=== PATIENT | female | born 1980 | race Caucasian/White ===

== ENCOUNTER 2017-11-21 11:06 | Emergency (ER) | payer MEDICAID ==
[~2017-11-21] VITALS: Ht 160 cm; Wt 61.7 kg
[2017-11-21 11:09] VITALS: BP 114/74
--- NOTE | 2017-11-21 11:11 | NUR ---
PT AMBULATES TO BED 9
--- NOTE | 2017-11-21 11:20 | NUR ---
PT C/O POSSIBLE FOREIGN BODY PART OF EARING WENT INSIDE HER LT EAR; DENIES PAIN. PATIENT STATES SHE WAS REMOVING THE EARING FROM DAITH PIERCING AND THE BACK WENT INTO THE EAR CANAL. UPON INSPECTION OF THE EAR, FOREING BODY VIEWED IN EAR CANAL. PATIENT STATES PAIN OF 0/10 AT THIS TIME; VSS; PATIENT POSITIONED FOR COMFORT; HOB ELEVATED; BEDRAILS UP X1; BED DOWN. ER MD MADE AWARE OF PT STATUS.
--- NOTE | 2017-11-21 12:46 | NUR ---
Patient being evaluated by physician at bedside.
[2017-11-21 13:01] VITALS: BP 114/74
== END 2017-11-21 13:00 | disposition home or self-care (01) ==
LOC: MED 11:06
DX: T16.2XXA Foreign body in left ear, initial encounter (principal); X58.XXXA Exposure to other specified factors, initial encounter; Y93.89 Activity, other specified; Y92.89 Other specified places as the place of occurrence of the external cause; Y99.8 Other external cause status
CPT/HCPCS: 69200; 99284

== ENCOUNTER 2018-02-21 16:07 | Emergency (ER) | payer MEDICAID ==
[~2018-02-21] VITALS: Ht 160 cm; Wt 59.9 kg
[2018-02-21 16:20] VITALS: BP 114/73
--- NOTE | 2018-02-21 16:20 | NUR ---
37f bib self with c/o decrease hearing to left ear with the feeling of "having water" in her ear x 1 wk. Patient denies any pain to left ear or injury. Patient denies any cold symptoms or fevers. No discharge noted to left ear. Pt is aox4 to person, place, time, and situation. RR are even and unlabored. NAd. Awaiting er md piña. Will continue to monitor.
--- NOTE | 2018-02-21 17:21 | NUR ---
Patient discharged with v/s stable. Written and verbal after care instructions given and explained. Patient verbalized understanding. Ambulatory with steady gait. All questions addressed prior to discharge. Advised to follow up with PMD.
[2018-02-21 17:23] VITALS: BP 120/72
== END 2018-02-21 17:21 | disposition home or self-care (01) ==
LOC: MED 16:07
DX: H61.22 Impacted cerumen, left ear (principal)
CPT/HCPCS: 99282

== ENCOUNTER 2018-08-24 08:32 | Emergency (ER) | payer MEDICAID ==
[~2018-08-24] VITALS: Ht 160 cm; Wt 63.5 kg
[2018-08-24 08:35] VITALS: BP 109/73
--- NOTE | 2018-08-24 08:48 | NUR ---
Patient ambulated to bed 11. RN evaluating patient at bedside.
--- NOTE | 2018-08-24 08:50 | NUR ---
BIB SELF. AAO X4 C/O DIZZINESS, N/V/D X 2 DAYS. PT STATES SHE FELT SHE HAS A FEVER, BUT DIDN'T CHECK TEMPERATURE AND TOOK TYLENOL YESTERDAY. PT STATES SHE WENT TO [place] LAST TUESDAY AND CAME BACK TUESDAY (08/19/2018). PT STATES VOMITED X2 TODAY, DIARRHEA X1. PT AFEBRILE AT THIS TIME. PERRLA BRISK 3 MM, EQUAL BARTOLO STRENGTH TO UPPER AND LOWER EXTREMITIES. STEADY GAIT. PT DENIES SOB. ER TO EVALUATE PT.
--- NOTE | 2018-08-24 09:41 | NUR ---
DR PRIETO AT BEDSIDE FOR PT EVALUATION
[2018-08-24] MEDS ORDERED: NACL 0.9% 2,000 ML IV SCH (09:49)
[2018-08-24] MEDS ORDERED: ONDANSETRON 4 MG/2 ML VIAL IVP ONE (09:50)
[2018-08-24 10:15] LABS: APPEARANCE,URINE CLOUDY (CLEAR); BILIRUBIN,URINE 1+ (NEGATIVE); BLOOD, URINE NEGATIVE (NEGATIVE); COLOR,URINE YELLOW (YELLOW); LEUKOCYTE ESTERASE ,URINE TRACE (NEGATIVE); NITRITE, URINE NEGATIVE (NEGATIVE); UGLUCOSE NEGATIVE (NEGATIVE)
[2018-08-24 10:25] LABS: BARBITURATE, URINE NEG. ng/ml (NEG <=200); BENZODIAZEPINE, URINE NEG. ng/mL (NEG <=200); CANNABINOID, URINE NEG. ng/mL (NEG <=50); COCAINE, URINE NEG. ng/mL (NEG <=300); OPIATE, URINE NEG. ng/mL (NEG <=2000); PHENCYCLIDINE SCREEN,URINE NEG. ng/mL (NEG <=25)
[2018-08-24 10:43] LABS: BASOPHILS % (AUTO) 0.4 % (0.0-2.0); EOSINOPHILS % (AUTO) 0.3 % (0.0-4.0); HEMATOCRIT 38.5 % (36-48); HEMOGLOBIN 12.5 g/dL (12.0-16.0); LYMPHOCYTES # (AUTO) 0.7 K/uL (2.5-16.5); LYMPHOCYTES % (AUTO) 7.4 % (20.5-51.1); MEAN CORPUSCULAR HEMOGLOBIN 28 pg (27-31); MEAN CORPUSCULAR HGB CONC 32 g/dL (33-37); MEAN CORPUSCULAR VOLUME 84.9 fL (80-94); MONOCYTES # (AUTO) 0.5 K/uL (0.8-1.0); MONOCYTES % (AUTO) 5.5 % (1.7-9.3); NEUTROPHILS # (AUTO) 8.5 K/uL (1.8-7.7); NEUTROPHILS % (AUTO) 86.4 % (42.2-75.2); PLATELET COUNT (AUTO) 303 K/uL (140-450); RED BLOOD CELL COUNT(AUTO) 4.53 MIL/uL (4.20-5.40); RED CELL DISTRIBUTION WIDTH 13.7 % (11.6-13.7); WHITE BLOOD COUNT (AUTO) 9.9 K/uL (4.8-10.8)
[2018-08-24 10:52] LABS: RBC,URINE NONE SEEN /HPF (0-5); URINE AMORPHOUS URATE 4+ /HPF (None Seen); WBC,URINE NONE SEEN /HPF (0-5)
[2018-08-24 10:54] LABS: ACETONE, SERUM NEGATIVE (NEGATIVE)
[2018-08-24 11:00] LABS: ALBUMIN 3.6 g/dL (3.4-5.0); AMYLASE 40 U/L (25-115); ANION GAP 12.7 (8-16); ASPARTATE AMINOTRANSFERASE 15 U/L (15-37); CARBON DIOXIDE 25.4 mmol/L (21-32); CHLORIDE 107 mmol/L (98-107); CREATININE 0.7 mg/dL (0.6-1.3); GFR ARICAN-AMERICAN 122 mL/min (>90); GLUCOSE 95 mg/dL (74-106); LIPASE 92 U/L (73-393); POTASSIUM 4.1 mmol/L (3.5-5.1); SODIUM SERUM 141 mmol/L (136-145); TOTAL BILIRUBIN 0.3 mg/dL (0.0-1.0); UREA NITROGEN, BLOOD 14 mg/dL (7-18)
--- NOTE | 2018-08-24 11:00 | NUR ---
PT ASLEEP. EASILY AROUSABLE BY NAME. NO SIGNS AND SYMPTOMS OF DISTRESS NOTED. EVEN AND UNLABORED BREATHING.
--- NOTE | 2018-08-24 12:00 | NUR ---
PT LAYING DOWN. AAO X4. CLEAR SPEECH. NO SIGNS AND SYMPTOMS OF DISTRESS NOTED.
[2018-08-24 12:33] VITALS: BP 119/84
--- NOTE | 2018-08-24 12:33 | NUR ---
Patient discharged with v/s stable. Written and verbal after care instructions given and explained. Patient alert, oriented and verbalized understanding of instructions. Ambulatory with steady gait. All questions addressed prior to discharge. ID band removed. Patient advised to follow up with PMD. Rx of COMPAZINE, IMODIUM A-D given. Patient educated on indication of medication including possible reaction and side effects. Opportunity to ask questions provided and answered.
== END 2018-08-24 12:33 | disposition home or self-care (01) ==
LOC: MED 08:32
DX: K52.89 Other specified noninfective gastroenteritis and colitis (principal); R50.9 Fever, unspecified
CPT/HCPCS: 36415; 80053; 80305; 81001; 81025; 82009; 82150; 83690; 85025; 96361; 96374; 99283; J2405; J7030

== ENCOUNTER 2019-08-13 19:29 | Emergency (ER) | payer MEDICAID ==
[~2019-08-13] VITALS: Ht 160 cm; Wt 64.9 kg
[2019-08-13 20:04] VITALS: BP 98/64
--- NOTE | 2019-08-13 20:20 | NUR ---
38 Y/O FEMALE PRESENTS TO ER WITH C/O CONSTANT NAUSEA, VOMITING, AND FEVER. X 5 DAYS. PT STATES SHE HASN'T EATEN 08/11/19 DUE TO NAUSEA AND VOMITING. DENIES EATING ANY BAD FOOD, OR BEING AROUND ANY SICK INDIVIDUALS. VSS, R/R EQUAL AND UNLABORED. LMP 08/13/19. PT IS CURRENTLY AFEBRILE, AND NO VOMITING VISUALIZED SINCE BEING CHECKED INTO ER. PT RESTING QUIETLY ON BED, WILL CONTINUE TO MONITOR. NKDA DENIES PMH
--- NOTE | 2019-08-13 20:30 | NUR ---
PT AMBULATED TO [facility] WITH STEADY GAIT.
[2019-08-13 21:08] VITALS: BP 98/64
--- NOTE | 2019-08-13 21:08 | NUR ---
Patient discharged BY DR. KOHLI with v/s stable. Written and verbal after care instructions given and explained BY DR. KOHLI. Patient alert, oriented and verbalized understanding of instructions. Ambulatory with steady gait. All questions addressed prior to discharge BY . ID band removed. Patient advised to follow up with PMD. Rx of MACROBID given. Patient educated on indication of medication including possible reaction and side effects BY DR. KOHLI. Opportunity to ask questions provided and answered.
== END 2019-08-13 21:08 | disposition home or self-care (01) ==
LOC: MED 19:29
DX: N39.0 Urinary tract infection, site not specified (principal)
CPT/HCPCS: 81002; 81025; 99283

== ENCOUNTER 2020-02-03 16:54 | Emergency (ER) | payer MEDICAID ==
[~2020-02-03] VITALS: Ht 160 cm; Wt 69.9 kg
[2020-02-03 17:16] VITALS: BP 131/81
--- NOTE | 2020-02-03 17:20 | NUR ---
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 NO ACTIVE BLEEDING AT THIS TIME. UNKNOWN DOG'S IMMUNIZATIONS RECORD. PT CANNOT RECALL HER LAST TDAP SHOT. PMH: DENIES
[2020-02-03] MEDS ORDERED: BACITRACIN OINT 500 UNITS/GM PKT TP ONE (17:35)
--- NOTE | 2020-02-03 17:40 | NUR ---
PT WOUND CLEANED AND IRRIGATED WITH NORMAL SALINE, APPLIED BACITRACIN ON PT LAC, DRESSED WITH JESSICA CHAMORRO, PA NOTIFIED.
[2020-02-03 18:00] VITALS: BP 125/75
--- NOTE | 2020-02-03 18:00 | NUR ---
Patient discharged with v/s stable. Written and verbal after care instructions given and explained. Patient alert, oriented and verbalized understanding of instructions. Ambulatory with steady gait. All questions addressed prior to discharge. ID band removed. Patient advised to follow up with PMD. Rx of Augmentin and Naprosyn given. Patient educated on indication of medication including possible reaction and side effects. Opportunity to ask questions provided and answered.
== END 2020-02-03 18:00 | disposition home or self-care (01) ==
LOC: MED 16:54
DX: S01.452A Open bite of left cheek and temporomandibular area, initial encounter (principal); W54.0XXA Bitten by dog, initial encounter; Y93.89 Activity, other specified; Y92.89 Other specified places as the place of occurrence of the external cause; Y99.8 Other external cause status
CPT/HCPCS: 90471; 90715; 99283

== ENCOUNTER 2021-03-24 23:14 | Emergency (ER) | payer MEDICAID ==
[~2021-03-24] VITALS: Ht 157.5 cm; Wt 70.3 kg
[2021-03-24 23:31] VITALS: BP 130/90
[2021-03-24] MEDS ORDERED: NACL 0.9% 1,000 ML IV ONE (23:35)
[2021-03-24] MEDS ORDERED: ONDANSETRON 4 MG/2 ML VIAL IVP ONE (23:35)
--- NOTE | 2021-03-24 23:42 | NUR ---
Blood for labwork drawn from right arm per relocation director. Patient tolerated well.
[2021-03-24 23:58] LABS: BASOPHILS # (AUTO) 0.1 K/uL (0.00-0.22); BASOPHILS % (AUTO) 0.9 % (0.0-2.0); EOSINOPHILS # (AUTO) 0.1 K/uL (0-0.4); EOSINOPHILS % (AUTO) 1.4 % (0.0-4.0); HEMATOCRIT 38.3 % (36-48); HEMOGLOBIN 12.8 g/dL (12.0-16.0); LYMPHOCYTES # (AUTO) 1.6 K/uL (2.5-16.5); LYMPHOCYTES % (AUTO) 20.6 % (20.5-51.1); MEAN CORPUSCULAR HEMOGLOBIN 28 pg (27-31); MEAN CORPUSCULAR HGB CONC 33 g/dL (33-37); MEAN CORPUSCULAR VOLUME 83.2 fL (80-94); MONOCYTES # (AUTO) 0.7 K/uL (0.8-1.0); MONOCYTES % (AUTO) 9.4 % (1.7-9.3); NEUTROPHILS # (AUTO) 5.3 K/uL (1.8-7.7); NEUTROPHILS % (AUTO) 67.7 % (42.2-75.2); PLATELET COUNT (AUTO) 336 K/uL (140-450); RED CELL DISTRIBUTION WIDTH 14.2 % (11.6-13.7); WHITE BLOOD COUNT (AUTO) 7.8 K/uL (4.8-10.8)
[2021-03-24 23:58] LABS: APPEARANCE,URINE CLOUDY (CLEAR); BILIRUBIN,URINE NEGATIVE (NEGATIVE); BLOOD, URINE 3+ (NEGATIVE); COLOR,URINE YELLOW (YELLOW); LEUKOCYTE ESTERASE ,URINE 1+ (NEGATIVE); NITRITE, URINE POSITIVE (NEGATIVE); PH,URINE 6.5 (5.0-9.0); UGLUCOSE NEGATIVE (NEGATIVE)
--- NOTE | 2021-03-25 00:01 | NUR ---
Patient BIB by family from home. C/O vomitting x 2 days. Patient reported, had vomitting for 2 days, no diarrhea. A/O,X4, nausea, vomitting , no abdominal pain.
[2021-03-25 00:08] LABS: RBC,URINE 0-5 /HPF (0-5); WBC,URINE 20-60 /HPF (0-5)
--- NOTE | 2021-03-25 00:11 | NUR ---
Dr. Gamez at chair C to exam patient.
[2021-03-25 00:30] LABS: ALBUMIN 3.9 g/dL (3.4-5.0); ANION GAP 13.1 (8-16); CARBON DIOXIDE 28.6 mmol/L (21-32); CREATININE 0.8 mg/dL (0.6-1.3); POTASSIUM 3.7 mmol/L (3.5-5.1); TOTAL BILIRUBIN 0.3 mg/dL (0.0-1.0)
[2021-03-25] MEDS ORDERED: ACETAMINOPHEN EXTRA STRENGTH 500 MG TAB PO ONE (00:55)
--- NOTE | 2021-03-25 01:20 | NUR ---
COVID-19 rapid and Flu swabs collected and sent to lab.
--- NOTE | 2021-03-25 02:11 | NUR ---
Dr. Gamez at chair C to explain treatment plans and results,
[2021-03-25] MEDS ORDERED: NITR100C7 PO (02:18)
[2021-03-25] MEDS ORDERED: ONDA-188 SL (02:18)
[2021-03-25 02:24] VITALS: BP 130/90
--- NOTE | 2021-03-25 02:24 | NUR ---
Patient discharged with v/s stable. Written and verbal after care instructions given and explained. Patient alert, oriented and verbalized understanding of instructions. Ambulatory with steady gait. All questions addressed prior to discharge. ID band removed. Patient advised to follow up with PMD. Rx of Macrobid and Zofran given. Patient educated on indication of medication including possible reaction and side effects. Opportunity to ask questions provided and answered.
--- NOTE | 2021-03-27 16:20 | NUR ---
LATE ENTRY---Urine culture results received from lab. Results shown to Dr. CABEZAS . No new orders needed at this time. Treatment appropriate. Copy placed in C&S folder.
== END 2021-03-25 02:24 | disposition home or self-care (01) ==
LOC: MED 23:14
DX: N39.0 Urinary tract infection, site not specified (principal); Z20.822 Contact with and (suspected) exposure to COVID-19; R11.10 Vomiting, unspecified; R51.9 Headache, unspecified; R09.89 Other specified symptoms and signs involving the circulatory and respiratory systems
CPT/HCPCS: 36415; 80053; 81001; 81025; 83690; 85025; 87086; 87426; 87804; 96361; 96374; 99283; G0480; J2405; J7030

== ENCOUNTER 2022-07-14 17:53 | Emergency (ER) | payer MEDICAID ==
[~2022-07-14] VITALS: Ht 160 cm; Wt 71.8 kg
[~2022-07-14 17:53] MED LIST: NITR100C7 PO; ONDA-188 SL
[2022-07-14 18:15] VITALS: BP 133/81
[2022-07-14] MEDS ORDERED: NACL 0.9% 1,000 ML IV ONE (18:40)
[2022-07-14] MEDS ORDERED: ONDANSETRON 4 MG/2 ML VIAL IVP ONE (18:40)
[2022-07-14 19:14] LABS: BASOPHILS % (AUTO) 0.4 % (0.0-2.0); EOSINOPHILS % (AUTO) 0.1 % (0.0-4.0); HEMOGLOBIN 13.6 g/dL (12.0-16.0); LYMPHOCYTES # (AUTO) 0.7 K/uL (2.5-16.5); LYMPHOCYTES % (AUTO) 9.9 % (20.5-51.1); MEAN CORPUSCULAR HEMOGLOBIN 28 pg (27-31); MEAN CORPUSCULAR HGB CONC 33 g/dL (33-37); MEAN CORPUSCULAR VOLUME 84.2 fL (80-94); MONOCYTES # (AUTO) 0.5 K/uL (0.8-1.0); NEUTROPHILS # (AUTO) 5.5 K/uL (1.8-7.7); NEUTROPHILS % (AUTO) 82.6 % (42.2-75.2); PLATELET COUNT (AUTO) 305 K/uL (140-450); RED BLOOD CELL COUNT(AUTO) 4.87 MIL/uL (4.20-5.40); RED CELL DISTRIBUTION WIDTH 14.8 % (11.6-13.7); WHITE BLOOD COUNT (AUTO) 6.7 K/uL (4.8-10.8)
[2022-07-14 19:27] LABS: ANION GAP 12.7 (8-16); CARBON DIOXIDE 26.2 mmol/L (21-32); CREATININE 0.8 mg/dL (0.6-1.3); POTASSIUM 3.9 mmol/L (3.5-5.1); TOTAL BILIRUBIN 0.2 mg/dL (0.0-1.0)
[2022-07-14] MEDS ORDERED: ONDANSETRON 4 MG/2 ML VIAL ONE (19:48)
[2022-07-14] MEDS ORDERED: LOPE1TAB14 PO (20:15)
[2022-07-14] MEDS ORDERED: ONDA-188 SL (20:15)
--- NOTE | 2022-07-14 20:39 | NUR ---
SEE COMPLETE ASSESSMENT
[2022-07-14 20:51] VITALS: BP 112/72
--- NOTE | 2022-07-14 20:51 | NUR ---
Patient discharged with v/s stable. Written and verbal after care instructions given and explained. Patient alert, oriented and verbalized understanding of instructions. Ambulatory with steady gait. All questions addressed prior to discharge. ID band removed. Patient advised to follow up with PMD. Rx of LOPERAMIDE AND ZOFRAN given. Patient educated on indication of medication including possible reaction and side effects. Opportunity to ask questions provided and answered.
== END 2022-07-14 20:51 | disposition home or self-care (01) ==
LOC: MED 17:53
DX: R11.10 Vomiting, unspecified (principal); R19.7 Diarrhea, unspecified; R10.9 Unspecified abdominal pain; Z79.899 Other long term (current) drug therapy
CPT/HCPCS: 36415; 80053; 81025; 83690; 85025; 96361; 96374; 99283; J2405; J7030